=== PATIENT | female | born 1985 | race Two or more races ===

== ENCOUNTER 2024-11-04 10:15 | Inpatient (IN) | payer OTHER ==
[2024-11-04] MEDS: ELECTROLYTE-148 SOLN 1,000 ML IV SCH (11:15)
[2024-11-04] MEDS: TERBUTALINE SULFATE 1 MG/1 ML VIAL SQ ONE ×4 (11:32→21:10)
[2024-11-04 11:51] LABS: ABSOLUTE IMMATURE GRANULOCYTES 0.18 x10^3/uL (0.0-0.031); BASOPHILS # 0.05 x10^3/uL (0.01-0.08); EOSINOPHIL % 0.6 % (0.7-5.8); EOSINOPHILS # 0.09 x10^3/uL (0.04-0.36); HEMATOCRIT 39.5 % (34.1-44.9); HEMOGLOBIN 13.2 g/dL (11.2-15.7); MCHC 33.4 g/dl (32.2-35.5); MEAN CELL VOLUME 92.1 fl (79.4-94.8); MEAN PLT VOLUME 10.3 fl (9.4-12.3); MONOCYTE # 0.91 x10^3/uL (0.24-0.86); MONOCYTE % 5.8 % (4.7-12.5); PLATELET COUNT 260 x10^3/uL (182-369); RDW 13.4 % (12.1-16.8)
[2024-11-04 11:53] LABS: PH,URINE 7.5 (5.0-8.0); URINE APPEARANCE CLEAR; URINE BILIRUBIN NEGATIVE (NEGATIVE); URINE COLOR YELLOW; URINE GLUCOSE (UA) NEGATIVE (NEGATIVE); URINE KETONE NEGATIVE (NEGATIVE); URINE LEUK ESTERASE NEGATIVE (NEGATIVE); URINE NITRITE NEGATIVE (NEGATIVE); URINE PROTEIN NEGATIVE (NEGATIVE); URINE UROBILINOGEN 0.2 mg/dL (0.2-1.0)
[2024-11-04 12:09] LABS: CHLORIDE 104 mmol/L (98-107); POTASSIUM 3.7 mmol/L (3.5-5.1); SODIUM 135 mmol/L (136-145)
[2024-11-04 12:10] LABS: BLOOD UREA NITROGEN 4.1 mg/dL (7-18); CALCIUM 8.9 mg/dL (8.5-10.1)
[2024-11-04 12:11] LABS: ALBUMIN 2.9 g/dl (3.4-5.0); ANION GAP 8 mmol/L (4-13); CO2 23 mmol/L (21-32); GLUCOSE,RANDOM 77 mg/dL (74-106)
[2024-11-04 12:14] LABS: CREATININE 0.4 mg/dL (0.55-1.3); SGOT/AST 20 U/L (15-37); SGPT/ALT 17 U/L (13-61)
[2024-11-04 12:15] LABS: BILIRUBIN,TOTAL 0.4 mg/dL (0.2-1); TOT PROT 6.8 g/dl (6.4-8.2)
[2024-11-04 12:17] LABS: ALK PHOS 136 U/L (45-117)
[2024-11-04 16:31] LABS: INR 1.12 (0.83-1.09); PROTHROMBIN TIME (PATIENT) 12.2 SEC (9.7-13.0)
[2024-11-04 17:52] VITALS: BMI 25.6
[2024-11-04] MEDS ORDERED: BETAMET ACET/BETAMET NA PH 30 MG/5 ML VIAL ONE (18:05)
[2024-11-04] MEDS: BETAMET ACET/BETAMET NA PH 30 MG/5 ML VIAL IM STA (18:10)
[2024-11-04] MEDS: LACTATED RINGERS SOLUTION 1,000 ML IV SCH (19:00)
[2024-11-04 19:58] LABS: COCAINE, UR NEGATIVE (NEGATIVE); URINE BARBITURATES NEGATIVE (NEGATIVE); URINE BENZODIAZEPINES NEGATIVE (NEGATIVE)
[2024-11-04 19:59] LABS: METHADONE, UR NEGATIVE (NEGATIVE); PHENCYCLIDINE,URINE NEGATIVE (NEGATIVE)
[2024-11-04 20:04] LABS: OPIATES, URI NEGATIVE (NEGATIVE); URINE AMPHETAMINES NEGATIVE (NEGATIVE)
[2024-11-04] MEDS ORDERED: CEFAZOLIN SODIUM 2 GM VIAL ONE (22:27)
[2024-11-04] MEDS: CEFAZOLIN SODIUM 2 GM in DEXTROSE 5%-WATER 100 ML IVPB ONE (22:30)
[2024-11-04] MEDS: LACOSAMIDE 100 MG TABLET PO SCH (22:32)
[2024-11-04] MEDS: CITRIC ACID/SODIUM CITRATE 30 ML UNIT-DOSE CUP PO ONE (22:45)
[2024-11-05] MEDS ORDERED: LIGASURE IMPACT TP ONE (00:16)
[2024-11-05] MEDS ORDERED: morphine SULFATE/PF 1 MG/2 ML (2cc Syringe - QUVA) ONE (00:33)
[2024-11-05] MEDS ORDERED: FENTANYL CITRATE/PF 50 MCG/ML VIAL ONE ×2 (02:07→02:08)
[2024-11-05] MEDS ORDERED: MIDAZOLAM HCL 2 MG/2 ML SINGLE DOSE VIAL ONE (02:08)
[2024-11-05] MEDS ORDERED: ACETAMINOPHEN 325 MG TABLET (FP) PO PRN (02:34)
[2024-11-05] MEDS ORDERED: METHYLERGONOVINE MALEATE 0.2 MG/1 ML AMP IM PRN (02:34)
[2024-11-05 02:37] LABS: CORD BASE EXCESS -3.9 mmol/L (0-2); CORD PCO2 38.1 mmHg (30-78); CORD pH 7.36 (7.14-7.44)
[2024-11-05 02:38] LABS: CORD BASE EXCESS -6.3 mmol/L (0-2); CORD PCO2 42.6 mmHg (30-78); CORD pH 7.29 (7.14-7.44)
[2024-11-05] MEDS: OXYTOCIN 20 UNITS in 0.9% NS 20 UNIT/1,000 ML INFUS.BAG IV SCH (09:00)
[2024-11-05] MEDS: ONDANSETRON 4 MG/2 ML VIAL IVPUSH PRN (09:00)
[2024-11-05] MEDS: FERROUS SO4 325 MG TABLET (FP) PO SCH (10:43)
[2024-11-05] MEDS: ENOXAPARIN NA (PORCINE) 40 MG/0.4 ML DISP.SYRIN SQ SCH (10:43)
[2024-11-05] MEDS: PRENATAL VITAMINS W/ FOLIC ACID TABLET (FP) PO SCH (10:43)
[2024-11-05] MEDS ORDERED: oxyCODONE HCL 5 MG TABLET PO PRN ×2 (14:34)
[2024-11-05] MEDS: IBUPROFEN 600 MG TABLET (FP) PO PRN (15:54)
[2024-11-05 21:51] VITALS: RESP 18
[2024-11-06] MEDS ORDERED: BISACODYL 10 MG SUPP.RECT RC PRN (02:34)
[2024-11-06 07:11] LABS: ABSOLUTE IMMATURE GRANULOCYTES 0.24 x10^3/uL (0.0-0.031); BASOPHILS # 0.04 x10^3/uL (0.01-0.08); EOSINOPHIL % 0.1 % (0.7-5.8); EOSINOPHILS # 0.02 x10^3/uL (0.04-0.36); HEMATOCRIT 33.5 % (34.1-44.9); HEMOGLOBIN 11.2 g/dL (11.2-15.7); MCHC 33.4 g/dl (32.2-35.5); MEAN CELL VOLUME 93.3 fl (79.4-94.8); MONOCYTE # 1.43 x10^3/uL (0.24-0.86); MONOCYTE % 7.7 % (4.7-12.5); PLATELET COUNT 261 x10^3/uL (182-369); RDW 13.5 % (12.1-16.8)
[2024-11-06] MEDS: SIMETHICONE 80 MG TAB.CHEW (FP) PO PRN (10:02)
[2024-11-06] MEDS: ELECTROLYTE-148 SOLN 1,000 ML IV SCH (23:15)
[2024-11-08 07:25] LABS: ABSOLUTE IMMATURE GRANULOCYTES 0.13 x10^3/uL (0.0-0.031); BASOPHILS # 0.08 x10^3/uL (0.01-0.08); EOSINOPHIL % 1.7 % (0.7-5.8); HEMATOCRIT 37.3 % (34.1-44.9); HEMOGLOBIN 12.3 g/dL (11.2-15.7); MEAN CELL VOLUME 93.5 fl (79.4-94.8); MEAN PLT VOLUME 9.8 fl (9.4-12.3); MONOCYTE # 0.86 x10^3/uL (0.24-0.86); MONOCYTE % 7.3 % (4.7-12.5); PLATELET COUNT 294 x10^3/uL (182-369); RDW 13.2 % (12.1-16.8)
[2024-11-08 10:02] VITALS: BP 125/84; PULSE 98; TEMP 98.3
== END 2024-11-08 17:40 | disposition home or self-care (01) | DRG 540 ==
LOC: JDEL 10:15 → JLDR 17:26 → OBSVTOIN 23:04 → JLDR 23:04 → J3W 11-05 04:47
PROVIDERS: ADMIT Obstetrics & Gynecology; ATTEND Obstetrics & Gynecology
PROC: 10D00Z1 Extraction of Products of Conception, Low, Open Approach (ICD-10-PCS; principal; 2024-11-05)
PROC: 0UB70ZZ Excision of Bilateral Fallopian Tubes, Open Approach (ICD-10-PCS; 2024-11-05)
DX: O34.211 Maternal care for low transverse scar from previous cesarean delivery (principal); O99.354 Diseases of the nervous system complicating childbirth; G40.909 Epilepsy, unspecified, not intractable, without status epilepticus; Z3A.36 36 weeks gestation of pregnancy; Z37.0 Single live birth
CPT/HCPCS: 36415; 36600; 59409; 80053; 80307; 81003; 82803; 85025; 85610; 85730; 86780; 86850; 86900; 86901; 88305-TC; 88307-TC; G0378